=== PATIENT | male | born 1970 | race Two or more races ===

== ENCOUNTER 2018-11-01 00:36 | Emergency (ER) | payer BC ==
[~2018-11-01] VITALS: Ht 175.3 cm; Wt 88.5 kg
--- NOTE | 2018-11-01 00:45 | NUR ---
ED Nurse Note: pt walked in c/o reddened bump on left upper forehead on tuesday morning, reports pain on right mandibular area and ear area. noted red bump on forehead, no drainage, will cont monitor.
[2018-11-01 00:46] VITALS: BP 147/90
[2018-11-01] MEDS ORDERED: CEPHALEXIN500 MG ORAL (01:10)
[2018-11-01] MEDS ORDERED: BACTRIM DS TAB1 EAC1 ORAL (01:10)
[2018-11-01] MEDS ORDERED: Cephalexin 500mg cap ORAL ONE (01:15)
[2018-11-01] MEDS ORDERED: Bactrim-DS 1 tab ORAL ONE (01:15)
--- NOTE | 2018-11-01 01:26 | Emergency Room Report ---
History of Present Illness General Chief Complaint: Skin Rash/Abscess Source: Patient Present Illness HPI Patient is a 47-year-old male presented after increased rash to the right side of his forehead. Patient reports having increased discomfort. He reports of increased swelling in poking sensation. He thinks this may been a spider bite. He denies any prior history of similar infections in the past. Patient denies any recent trauma. He had noticed some swelling to a an area behind his right ear. He denies any other locations of discomfort. Allergies: Coded Allergies: No Known Allergies (Unverified , 11/01/18) Patient History Past Medical History: see triage record Reviewed Nursing Documentation: PMH: Agreed; PSxH: Agreed Nursing Documentation-PMH Past Medical History: No Stated History Review of Systems All Other Systems: negative except mentioned in HPI Physical Exam Vital Signs Date Time Temp Pulse Resp B/P (MAP) Pulse Ox O2 Delivery O2 Flow Rate FiO2 11/01/18 00:41 98.1 75 16 147/90 95 Room Air General Appearance: well appearing, no apparent distress, alert, GCS 15 Head: normocephalic, atraumatic ENT: hearing grossly normal, normal voice Neck: full range of motion, supple Respiratory: no respiratory distress, speaking full sentences Cardiovascular #1: normal inspection Musculoskeletal: no calf tenderness Neurologic: normal inspection, alert, oriented x3, responsive, software development project manager III-XII nml as tested, normal gait Psychiatric: mood/affect normal Skin: other - right forehead swelling, erythema Medical Decision Making Diagnostic Impression: Primary Impression: Skin infection ER Course Patient presented for skin rash. Differential diagnosis includes is not limited to abscess, cellulitis, staph infection, shingles among others. Patient has a benign exam and does not appear to require any further imaging or laboratory testing at this time. Patient has what appears to be an early staph infection. Patient was given prescription for Keflex and Bactrim. He was advised to follow-up for recheck in the next few days. He is advised to return if he has any concerns. Last Vital Signs Date Time Temp Pulse Resp B/P (MAP) Pulse Ox O2 Delivery O2 Flow Rate FiO2 11/01/18 00:46 98.1 75 16 147/90 95 Room Air Status: improved Disposition: HOME, SELF-CARE Condition: Stable Scripts Trimethoprim/Sulfamethoxazole 160/800* (BACTRIM DS TABLET*) 1 Each Tablet 1 TAB ORAL Q12H, #14 TAB 0 Refills Prov: Vladimir Blake MD 11/01/18 Cephalexin* (KEFLEX*) 500 Mg Capsule 500 MG ORAL EVERY 6 HOURS, #28 CAP Prov: Vladimir Blake MD 11/01/18 Patient Instructions: Vladimir Winston MD Nov 01, 2018 01:26
--- NOTE | 2018-11-01 01:35 | NUR ---
ED Nurse Note: pt cleared to be d/c per ER provider, pt discharge and aftercare instruction provided w/ prescription, pt education done via discussion and handout, pt advised to follow up with pcp or return to ed if sx worsen or new sx develop, pt verbalized understanding and agrees with plan, vss, ambulatory w/steady gait, left w/ all belongings.
[2018-11-01 01:36] VITALS: BP 147/90
== END 2018-11-01 01:38 | disposition home or self-care (01) ==
LOC: EMR 01:10
DX: R21 Rash and other nonspecific skin eruption (principal)
CPT/HCPCS: 99282